=== PATIENT | female | born 1990 | race Caucasian/White ===

== ENCOUNTER 2017-07-15 16:57 | Emergency (ER) | payer BC ==
[~2017-07-15] VITALS: Ht 160 cm; Wt 89.0 kg
[~2017-07-15 16:57] MED LIST: NO CURRENT MEDS
[2017-07-15 17:08] VITALS: Ht 160 cm; Wt 89.0 kg
[2017-07-15] MEDS ORDERED: ONDANSETRON (ODT) 4 MG TAB ODT STA (18:07)
[2017-07-15] MEDS ORDERED: LIDOCAINE/MYLANTA 40 ML BTL PO ONE (18:30)
[2017-07-15] MEDS ORDERED: RANITIDINE 150 MG TAB PO ONE (18:30)
[2017-07-15] MEDS ORDERED: OMEP20CA16 PO (18:51)
[2017-07-15] MEDS ORDERED: RANI150T9 PO (18:51)
--- NOTE | 2017-07-15 19:03 | ERD ---
ER Documentation Chief Complaint Date/Time DATE: 07/15/17 TIME: 19:00 Chief Complaint AP HPI This patient is a 26-year-old female with past medical history of acid reflux presenting to the emergency department with complaints of midepigastric pain and a burning feeling ongoing intermittently for the past 3 weeks. The patient takes no medication for relief of her symptoms. Additionally she had 2 episodes of yellowish colored vomit today but there was no blood. She has had very similar symptoms in the past. Symptoms are intermittent but worsening. She denies any lower abdominal pain currently. There has been no diarrhea, fevers, or other symptoms reported. ROS All systems reviewed and are negative except as per history of present illness. Medications Home Meds Active Scripts Omeprazole* (Omeprazole*) 20 Mg Capsule.dr, 20 MG PO DAILY, #30 Prov:KATHRYN PALACIO PA-C 07/15/17 Ranitidine Hcl* (Zantac*) 150 Mg Tablet, 150 MG PO BID Y for EPIGASTRIC PAIN, # 30 TAB Prov:KATHRYN PALACIO PA-C 07/15/17 Reported Medications [No Current Meds] No Conflict Check 04/04/10 Allergies Allergies: Coded Allergies: No Known Allergies (Verified Allergy, Mild, 05/21/16) PMhx/Soc History of Surgery: No Anesthesia Reaction: No Hx Neurological Disorder: No Hx Respiratory Disorders: No Hx Cardiac Disorders: No Hx Psychiatric Problems: No Hx Miscellaneous Medical Probl: No Hx Alcohol Use: Yes (2 DAYS AGO 2 SHOTS) Hx Substance Use: No Hx Tobacco Use: Yes (4 WEEKS AGO 1 CIG[employer]. ) Physical Exam Vitals Vital Signs Date Time Temp Pulse Resp B/P Pulse Ox O2 Delivery O2 Flow Rate FiO2 07/15/17 17:08 98.9 92 18 124/74 99 Physical Exam Const: Nontoxic, well-appearing female in no acute distress. Head: Atraumatic Eyes: Normal Conjunctiva ENT: Normal External Ears, Nose and Mouth. Neck: Full range of motion..~ No meningismus. Resp: Clear to auscultation bilaterally Cardio: Regular rate and rhythm, no murmurs Abd: Soft, non tender, non distended.No rebound tenderness or guarding. Normal bowel sounds. No tenderness to McBurney's point. Skin: No petechiae or rashes Back: No midline or flank tenderness Ext: No cyanosis, or edema Neur: Awake and alert Psych: Normal Mood and Affect Results 24 hrs Current Medications Medications (Trade) Dose Ordered Sig/Elizabeth Route PRN Reason Start Time Stop Time Status Last Admin Dose Admin Miscellaneous Medication (Gi Cocktail (2)) 40 ml ONCE ONCE PO 07/15/17 18:30 07/15/17 18:31 DC Ranitidine HCl (Zantac) 150 mg ONCE ONCE PO 07/15/17 18:30 07/15/17 18:31 DC Ondansetron HCl (Zofran Odt) 4 mg ONCE STAT ODT 07/15/17 18:07 07/15/17 18:08 DC Procedures/MDM 26-year-old female presenting to the emergency department with complaints of midepigastric pain with a burning feeling. History and physical examination is consistent with GERD. Patient has had the symptoms in the past. The patient was improved in the department after GI cocktail, ranitidine, and Zofran. I do not feel that further workup is required in the department since she had history of GERD and abdominal symptoms were stabilized in the department after treatment. I had low suspicion for acute abdomen, sepsis, or other emergent conditions at time of discharge. Close follow-up with the primary care physician is advised. Strict ear return precautions were discussed. Departure Diagnosis: Primary Impression: Epigastric pain Condition: Fair Patient Instructions: Gerd (Adult), Epigastric Pain (Uncertain Cause) Additional Instructions: Follow up with your PCP within the next 1-3 days for a repeat evaluation. If you require a referral to a specialist, your Primary Care Provider may be able to provide this for you. In most patient cases, a referral is not required. If you have further questions regarding this matter, please ask your Primary Care Provider. Return the the emergency department immediately if symptoms worsen or change. If you have any questions regarding medications, ask your pharmacist or us before you leave. If any adverse reactions, occur while taking your medications, discontinue the treatment and return to the emergency department immediately. If any new or worsening symptoms, uncontrolled fevers, or other unexplained symptoms occur, return to the emergency department immediately. Take your medications as directed, and complete the entire course of treatment. KATHRYN PALACIO PA-C Jul 15, 2017 19:03
== END 2017-07-15 19:35 | disposition left against medical advice (07) ==
LOC: FTE 16:57
DX: R10.13 Epigastric pain (principal); F17.210 Nicotine dependence, cigarettes, uncomplicated
CPT/HCPCS: 99283; Z7610

== ENCOUNTER 2017-08-08 03:54 | Emergency (ER) | payer BC ==
[~2017-08-08] VITALS: Ht 162.6 cm; Wt 63.6 kg
[~2017-08-08 03:54] MED LIST changes: +OMEP20CA16 PO; +RANI150T9 PO
[2017-08-08 04:05] VITALS: Ht 162.6 cm; Wt 63.6 kg
[2017-08-08] MEDS ORDERED: ONDANSETRON (ODT) 4 MG TAB ODT STA (04:27)
[2017-08-08] MEDS ORDERED: LIDOCAINE/MYLANTA 40 ML BTL PO STA (04:27)
[2017-08-08] MEDS ORDERED: RANITIDINE 150 MG TAB PO ONE (04:30)
[2017-08-08 04:39] VITALS: BP 121/83; PULSE 76; RESP 14; TEMP 97.9
[2017-08-08 05:04] LABS: URINE BLOOD (Dip) POC Negative (NEGATIVE)
[2017-08-08] MEDS ORDERED: ONDANSETRON 4 MG INJ IM STA (05:25)
--- NOTE | 2017-08-08 05:46 | ERD ---
ER Documentation Chief Complaint Date/Time DATE: 08/08/17 TIME: 05:44 Chief Complaint woke up with mid upper ap and bloating. +vomiting. no diarrhea. HPI This is a 27-year-old female presents to the ER for evaluation of abdominal pain. Patient states that she has had nausea and vomiting states that she has been diagnosed in the past with gastritis. She does state his pain feels the same. She localizes it to the midportion of abdomen with mild radiation to the back. The patient denies any trauma to the area and denies any vaginal bleeding or vaginal discharge. Patient is also denying any alcohol use at this time ROS All systems reviewed and are negative except as per history of present illness. Medications Home Meds Active Scripts Omeprazole* (Omeprazole*) 20 Mg Capsule.dr, 20 MG PO DAILY, #30 Prov:KATHRYN PALACIO PA-C 07/15/17 Ranitidine Hcl* (Zantac*) 150 Mg Tablet, 150 MG PO BID Y for EPIGASTRIC PAIN, # 30 TAB Prov:KATHRYN PALACIO PA-C 07/15/17 Reported Medications [No Current Meds] No Conflict Check 04/04/10 Allergies Allergies: Coded Allergies: No Known Allergies (Verified Allergy, Mild, 08/08/17) PMhx/Soc History of Surgery: No Anesthesia Reaction: No Hx Neurological Disorder: No Hx Respiratory Disorders: No Hx Cardiac Disorders: No Hx Psychiatric Problems: No Hx Miscellaneous Medical Probl: No Hx Alcohol Use: Yes (occassional) Hx Substance Use: Yes (MARIJUANA "EVERY ONCE IN A WHILE.") Hx Tobacco Use: No Smoking Status: Never smoker Physical Exam Vitals Vital Signs Date Time Temp Pulse Resp B/P Pulse Ox O2 Delivery O2 Flow Rate FiO2 08/08/17 04:39 97.9 76 14 121/83 100 Room Air 08/08/17 04:05 98.6 79 20 124/68 98 Physical Exam INITIAL VITAL SIGNS: Reviewed by me GENERAL: The patient is well developed and appropriate for usual state of health in no apparent distress HEENT: Pupils equal, round, and reactive to light. EOMI. There is no scleral icterus. NECK: C-spine is soft and supple, there is no meningismus. There is no cervical lymphadenopathy. LUNGS: Clear to auscultation bilaterally. There are no rales, wheezes or rhonchi. HEART: Regular rate and rhythm, no murmurs, clicks, rubs or gallops. ABDOMEN: Negative Finley sign, epigastric tenderness to palpation, otherwise soft, non-tender, non-distended. There are bowel sounds in all four quadrants. No rebound or guarding. EXTREMITIES: There is no peripheral cyanosis or edema. No focal swelling or erythema. NEUROLOGICAL: The patient moves all four extremities with 5/5 strength. Cranial nerves II - XII are intact. Normal gait. Alert and oriented SKIN: There is no apparent rash or petechiae. HEME/LYMPHATIC: There is no evidence of excessive bruising or lymphedema. PSYCHIATRIC: The patient does not appear anxious or depressed. Results 24 hrs Laboratory Tests Test 08/08/17 05:12 Bedside Urine pH (LAB) 5.5 Bedside Urine Protein (LAB) 1+ Bedside Urine Glucose (UA) Negative Bedside Urine Ketones (LAB) Negative Bedside Urine Blood Negative Bedside Urine Nitrite (LAB) Negative Bedside Urine Leukocyte Esterase (L Negative Current Medications Medications (Trade) Dose Ordered Sig/Elizabeth Route PRN Reason Start Time Stop Time Status Last Admin Dose Admin Miscellaneous Medication (Gi Cocktail (2)) 40 ml ONCE STAT PO 08/08/17 04:27 08/08/17 04:29 DC 08/08/17 05:13 Ranitidine HCl (Zantac) 150 mg ONCE ONCE PO 08/08/17 04:30 08/08/17 04:31 DC 08/08/17 05:13 Ondansetron HCl (Zofran Odt) 4 mg ONCE STAT ODT 08/08/17 04:27 08/08/17 04:29 DC 08/08/17 05:13 Ondansetron HCl (Zofran Inj) 4 mg ONCE STAT IM 08/08/17 05:25 08/08/17 05:26 DC Procedures/MDM This is a 27-year-old female presents to the ER for evaluation of abdominal pain. When I evaluated this patient she was nontoxic-appearing and hemodynamically stable. She did have some tenderness to palpation in the epigastric region. The patient does have a history of gastritis and states this pain feels similar. The patient did vomit once in the emergency room. She was given intramuscular Zofran, she was given p.o. Zantac and a GI cocktail and does state she is feeling better. At this time this patient will be discharged home with prescription for Zantac, and Zofran for acute gastritis and GERD Departure Diagnosis: Primary Impression: Abdominal pain Additional Impression: Acute gastritis Condition: Stable RUDDY LOZANO DO Aug 08, 2017 05:46
[2017-08-08] MEDS ORDERED: RANI150T9 PO (05:47)
[2017-08-08] MEDS ORDERED: ONDA4TAB8 PO (05:47)
== END 2017-08-08 06:11 | disposition home or self-care (01) ==
LOC: E/R 03:54
DX: K29.00 Acute gastritis without bleeding (principal)
CPT/HCPCS: 81003; 99283; Z7610